=== PATIENT | female | born 1995 | race Hispanic/Latino ===

== ENCOUNTER 2022-04-16 17:30 | Day surgery (SDC) | payer BC, OTHER ==
[2022-04-16 18:10] VITALS: BMI 37.8
[2022-04-16] MEDS ORDERED: hydrALAZINE 20 MG/ML VIAL SLOW IVP PRN (20:23)
== END 2022-04-16 20:40 | disposition home or self-care (01) ==
LOC: CSHLD/OP 17:30
PROVIDERS: ATTEND Family Medicine
DX: O36.8120 Decreased fetal movements, second trimester, not applicable or unspecified (principal); O32.1XX0 Maternal care for breech presentation, not applicable or unspecified; Z3A.26 26 weeks gestation of pregnancy
CPT/HCPCS: 76815

== ENCOUNTER 2022-07-01 09:34 | Inpatient (IN) | payer BC, MEDICAID ==
[2022-07-01] MEDS ORDERED: Carboprost 250 MCG/ML AMP IM PRN (10:58)
[2022-07-01] MEDS ORDERED: HYDROcodone/Acetaminophen 5/325 mg Tablet PO PRN ×3 (10:58→20:32)
[2022-07-01] MEDS ORDERED: Misoprostol 200 MCG TAB PR PRN (10:58)
[2022-07-01] MEDS ORDERED: Butorphanol Tartrate 1 MG/ML VIAL SLOW IVP PRN (10:58)
[2022-07-01] MEDS ORDERED: Methylergonovine 0.2 MG/ML VIAL IM PRN (10:58)
[2022-07-01] MEDS ORDERED: Lidocaine 1% (PF) 30 ML VIAL SC PRN (10:58)
[2022-07-01] MEDS ORDERED: Ibuprofen 800 MG TAB PO PRN (10:58)
[2022-07-01] MEDS ORDERED: Acetaminophen 500 MG TAB PO PRN (10:58)
[2022-07-01] MEDS ORDERED: Ondansetron PF 4 MG/2 ML Vial IVP PRN ×3 (10:58→20:32)
[2022-07-01] MEDS ORDERED: hydrALAZINE 20 MG/ML VIAL SLOW IVP PRN ×2 (10:58→20:32)
[2022-07-01] MEDS ORDERED: Diphenoxylate HCl/Atropine Tablet PO PRN (10:58)
[2022-07-01] MEDS ORDERED: Promethazine HCl 25 MG/ML VIAL IM PRN ×2 (10:58→15:44)
[2022-07-01] MEDS ORDERED: Penicillin G Potassium 5 MILL.UNITS in Sodium Chloride 0.9% 100 ML IVPB SCH (11:00)
[2022-07-01] MEDS ORDERED: Penicillin G 2.5 MILL.units 2.5 MILL.UNITS in Premix Bag 1 BAG IVPB SCH (11:00)
[2022-07-01] MEDS ORDERED: NS w/ Oxytocin 30 units 500 ML IV SCH ×3 (11:00→20:32)
[2022-07-01] MEDS ORDERED: Lactated Ringer's 1,000 ML IV SCH (11:00)
[2022-07-01] MEDS ORDERED: NS w/ Oxytocin 30 units 500 ML ONE (11:10)
[2022-07-01] MEDS ORDERED: Penicillin G Potassium 5 MILL.UNITS VIAL ONE (11:10)
[2022-07-01 11:16] LABS: Hemoglobin 11.1 g/dL (12.0-15.5); Mean Corpuscular HGB CONC 32.8 g/dL (32.0-36.0); Mean Corpuscular Hemoglobin 25.9 pg (27.0-33.0); Mean Platelet Volume 9.7 fl (7.4-10.4); Platelet Count 290 10x3/uL (150-450); RBC Distribution Width 14.9 % (11.5-14.5); Red Blood Cell (RBC) Count 4.28 10x6/uL (3.90-5.03); White Blood Cell (WBC) Count 8.9 10x3/uL (3.5-10.5)
[2022-07-01 11:24] VITALS: BMI 36.6
[2022-07-01 11:46] LABS: SARS-CoV-2 NAA Rapid Test Not Detected (NotDetected)
[2022-07-01 12:01] LABS: Syphilis Antibody Nonreactive (Nonreactive)
[2022-07-01 12:02] LABS: Hep B Surf Ag Non-Reactive S/CO (NonReactive); Syphilis Antibody Index 0.03 S/CO (<1.00 Non-Reactive)
[2022-07-01 12:04] LABS: HBSAg Index 0.21 S/CO (0-0.99)
[2022-07-01] MEDS ORDERED: GENTAMICIN IVPB SCH (14:00)
[2022-07-01] MEDS ORDERED: ADMIXTURE FEE IVPB SCH (14:00)
[2022-07-01] MEDS ORDERED: SODIUM CHLORIDE IVPB SCH (14:00)
[2022-07-01] MEDS ORDERED: Ampicillin 2 GM VIAL ONE (14:18)
[2022-07-01] MEDS ORDERED: Fentanyl 2 mcg/Bup 0.1% Cadd 100 ML ONE (14:39)
[2022-07-01] MEDS ORDERED: Acetaminophen 325 MG TAB PO PRN (15:44)
[2022-07-01] MEDS ORDERED: ePHEDrine Sulfate 50 MG/10 ML VIAL SLOW IVP PRN (15:44)
[2022-07-01] MEDS ORDERED: Lactated Ringer's 500 ML IV PRN (15:44)
[2022-07-01] MEDS ORDERED: Naloxone HCl 0.4 mg/ml Vial IVP PRN ×2 (15:44)
[2022-07-01] MEDS ORDERED: Moisturizing Cream (Eucerin) 113 GM JAR TOP PRN (15:44)
[2022-07-01] MEDS ORDERED: diphenhydrAMINE 50 MG/ML VIAL IVP PRN (15:44)
[2022-07-01] MEDS ORDERED: Fentanyl 2 mcg/Bupivacaine 0.1% Cassette 100 ML EPIDURAL SCH (15:45)
[2022-07-01] MEDS ORDERED: Communication Order-Pharmacy FS SCH (15:45)
[2022-07-01] MEDS ORDERED: Ampicillin 2 GM in Sodium Chloride 0.9% 100 ML IVPB SCH (18:00)
[2022-07-01] MEDS ORDERED: Bisacodyl 10 MG SUPP PR PRN (20:32)
[2022-07-01] MEDS ORDERED: Boostrix 0.5 ML (Tdap) VIAL IM ONE (20:32)
[2022-07-01] MEDS ORDERED: Preparation H Ointment 28 GM TUBE PR PRN (20:32)
[2022-07-01] MEDS ORDERED: Benzocaine-Menthol 82.5 ML CAN TOP PRN (20:32)
[2022-07-01] MEDS ORDERED: Milk Of Magnesia 30 ML UDCUP PO PRN (20:32)
[2022-07-01] MEDS ORDERED: Lanolin Ointment 7 GM TUBE TOP PRN (20:32)
[2022-07-02] MEDS: Docusate 100 MG CAP PO SCH ×3 (05:13→21:00)
[2022-07-02] MEDS: Ibuprofen 800 MG TAB PO SCH ×4 (05:14→22:00)
[2022-07-02] MEDS: Prenatal Vitamin 1 TAB PO SCH (08:19)
[2022-07-02] MEDS: Ferrous Sulfate 325 MG TAB PO SCH ×2 (08:20→16:53)
[2022-07-02] MEDS: diphenhydrAMINE 25 MG CAP PO PRN (21:41)
[2022-07-03] MEDS: Ibuprofen 800 MG TAB PO SCH (06:17)
[2022-07-03 08:32] VITALS: BP 111/56
[2022-07-03] MEDS: Docusate 100 MG CAP PO SCH (09:16)
[2022-07-03] MEDS: diphenhydrAMINE 25 MG CAP PO PRN (09:16)
[2022-07-03] MEDS: Prenatal Vitamin 1 TAB PO SCH (09:16)
[2022-07-03 11:52] VITALS: TEMP 98.4
== END 2022-07-03 11:21 | disposition home or self-care (01) | DRG 805 ==
LOC: CSHLD 09:34 → CSHPP 21:30
PROVIDERS: ADMIT Family Medicine; ATTEND Family Medicine
PROC: 10E0XZZ Delivery of Products of Conception, External Approach (ICD-10-PCS; principal; 2022-07-01)
PROC: 10907ZC Drainage of Amniotic Fluid, Therapeutic from Products of Conception, Via Natural or Artificial Opening (ICD-10-PCS; 2022-07-01)
PROC: 3E033VJ Introduction of Other Hormone into Peripheral Vein, Percutaneous Approach (ICD-10-PCS; 2022-07-01)
DX: O26.62 Liver and biliary tract disorders in childbirth (principal); K83.1 Obstruction of bile duct; Z37.0 Single live birth; Z3A.38 38 weeks gestation of pregnancy; Z20.822 Contact with and (suspected) exposure to COVID-19; O99.824 Streptococcus B carrier state complicating childbirth; E66.9 Obesity, unspecified; O99.214 Obesity complicating childbirth; Z79.899 Other long term (current) drug therapy
CPT/HCPCS: 51702; 85027; 86780; 86850; 86900; 86901; 87340; J0290; J1580; J2540; J2590; J3490; J7120; U0002